=== PATIENT | male | born 2000 | race Caucasian/White ===

== ENCOUNTER → 2022-03-02 14:45 | Outpatient (CLI) | payer MEDICAID, SELFPAY ==
[2022-03-02 19:53] LABS: Adenovirus,PCR Not Detected (NotDetected); Bordetella Pertussis Not Detected (NotDetected); Coronavirus 19, PCR Not Detected (NotDetected); Coronavirus 229E Not Detected (NotDetected); Coronavirus NL63 Not Detected (NotDetected); Coronavirus OC43 Not Detected (NotDetected); Coronovirus HKU1,PCR Not Detected (NotDetected); Human Metapneumovirus Not Detected (NotDetected); Influenza A, PCR Not Detected (NotDetected); Influenza AH1, PCR Not Detected (NotDetected); Influenza AH3,PCR Not Detected (NotDetected); Influenza B, PCR Not Detected (NotDetected); Parainfluenza 1, PCR Not Detected (NotDetected); Parainfluenza 2, PCR Not Detected (NotDetected); Parainfluenza 3, PCR Not Detected (NotDetected); Parainfluenza 4, PCR Not Detected (NotDetected); Respiratory Syncytial Virus Not Detected (NotDetected); Rhinovirus/Enterovirus Not Detected (NotDetected)
[2022-03-02 19:55] LABS: Chlamydophila Pneumoniae, PCR Not Detected (NotDetected); Mycoplasma Pneumoniae, PCR Not Detected (NotDetected)
[2022-03-02 20:03] LABS: Alanine Aminotransferase 23 U/L (12-78); Albumin Level 4.5 g/dl (3.5-5.0); Albumin/Globulin Ratio 1.7 (1.1-1.8); Alkaline Phosphatase 71 U/L (38-126); Anion Gap 19.2 mEq/L (5-15); Aspartate Amino Transferase 32 U/L (17-59); Bilirubin,Total 0.4 mg/dl (0.2-1.3); Blood Urea Nitrogen 16 mg/dl (9-20); Calcium 8.9 mg/dl (8.4-10.2); Carbon Dioxide 25 mmol/L (22.0-30.0); Chloride 100 mmol/L (98-107); Estimated Glomerular Filt Rate 82 ml/min (>60); GFR (African American) 100 ML/MIN (>60); Globulin 2.7 g/dL (1.3-3.2); Glucose 172 mg/dl (74-100); Potassium 4.2 mmoL/L (3.5-5.1); Sodium 140 mmol/L (136-145); Total Protein,Serum 7.2 g/dl (6.3-8.2)
[2022-03-02 20:34] LABS: Basophils % 0.6 % (0.1-2.0); Eosinophils % 0.2 % (0.1-12.0); Hematocrit 46.1 % (42.0-52.0); Hemoglobin 15.2 g/dL (14.1-18.0); Lymphocytes # 1.3 K/mm3 (0.7-4.5); Lymphocytes % 21.6 % (10-50); Mean Corpuscular HGB Conc 32.9 g/dL (31.8-35.4); Mean Corpuscular Hemoglobin 28.9 pg (27.0-31.2); Mean Corpuscular Volume 87.8 fl (80-94); Mean Platelet Volume 8.6 fl (7.4-10.4); Monocytes # 0.6 K/mm3 (0.1-1.0); Monocytes % 10.2 % (1.7-9.3); Neutrophils # 4.2 K/mm3 (1.8-7.8); Neutrophils % 67.5 % (37.0-80.0); Platelet Count 230 K/mm3 (142-424); Red Blood Count 5.25 M/mm3 (4.60-6.20); Red Cell Distribution Width 13.3 % (11.5-17.5); White Blood Count 6.2 K/mm3 (4.8-10.8)
[2022-03-03 08:23] LABS: Influenza AH1, 2009 Detected (NotDetected)
== END ==
PROVIDERS: PCP Nurse Practitioner; Visit Provider Nurse Practitioner
DX: Z20.822 Contact with and (suspected) exposure to COVID-19 (principal); J10.1 Influenza due to other identified influenza virus with other respiratory manifestations; R05.9 Cough, unspecified; R51.9 Headache, unspecified
CPT/HCPCS: 80053; 85025; 87581; 87632; 87798; C9803; U0003; U0005

== ENCOUNTER → 2022-07-22 09:20 | Outpatient (CLI) | payer MEDICAID, SELFPAY ==
[2022-07-22 18:31] LABS: Alanine Aminotransferase 30 U/L (12-78); Albumin Level 5.2 g/dl (3.5-5.0); Albumin/Globulin Ratio 1.8 (1.1-1.8); Alkaline Phosphatase 64 U/L (38-126); Anion Gap 10.2 mEq/L (5-15); Aspartate Amino Transferase 39 U/L (17-59); Bilirubin,Total 0.7 mg/dl (0.2-1.3); Blood Urea Nitrogen 14 mg/dl (9-20); Calcium 9.4 mg/dl (8.4-10.2); Carbon Dioxide 27 mmol/L (22.0-30.0); Chloride 106 mmol/L (98-107); Estimated Glomerular Filt Rate 92 ml/min (>60); GFR (African American) 111 ML/MIN (>60); Globulin 2.9 g/dL (1.3-3.2); Glucose 96 mg/dl (74-100); Potassium 4.2 mmoL/L (3.5-5.1); Sodium 139 mmol/L (136-145); Total Protein,Serum 8.1 g/dl (6.3-8.2)
[2022-07-22 19:00] LABS: Thyroid Stimulating Hormone 0.59 uIU/mL (0.465-4.68)
[2022-07-25 22:29] LABS: Neisseria gonorrhoeae, NAA Negative (Negative)
[2022-07-30 00:05] LABS: Testosterone,Free 16.5 pg/mL (9.3-26.5)
== END ==
PROVIDERS: PCP Family Medicine; Visit Provider Family Medicine
DX: N62 Hypertrophy of breast (principal)
CPT/HCPCS: 80053; 84402; 84443; 87491; 87591

== ENCOUNTER → 2022-08-08 13:27 | Outpatient (CLI) | payer MEDICAID, SELFPAY ==
--- NOTE | 2022-08-08 13:27 | CA_ITS ---
APPROVED REPORT EXAM: Comprehensive 2D, Doppler, and color-flow Echocardiogram Water Safety Teacher: Cat Forte RVT Ht: 6 ft 3 in Wt: 238lbs BSA: 2.36 BP: 118/76 mmHg Indications: CP 2D Dimensions LVOT 2.17 cm (M/F) 1.5-2.5 LA Volume 24.30 mL LA Volume Index 10.30 mL/m2 (M/F) 16-34 M-Mode Dimensions RVDd 1.52 cm (0.9-2.6) LA Diam 3.17 cm (1.9-4.0) LVDd 5.02 cm (3.5-5.7) Ao Diam 2.97 cm (2.0-3.7) LVDs 4.01 cm (3.5-5.7) IVSd 0.51 cm (0.6-1.1) PWd 0.45 cm (0.6-1.1) EF (Teich) 61.20% FS 33.40% EDV (Teich) 181.40 mL TAPSE 2.43 (<1.7) ESV (Teich) 70.40 mL LV Diastology E Decel Time 257.00 (160-240 msec) E/A Ratio 1.1 MED E' 8.60 (< 7 cm/sec) E'/MED E' Ratio 7.78 (>14) LAT E' 16.30 (<10 cm/sec) E/LAT E' Ratio 4.10 (>14) Aortic Valve AO Peak GR. 7.40 mmHg Mitral Valve MV E Max Perry. 67.00 (40-130 cm/s) MV A Velocity 61.00 (40-130 cm/s) E/A Ratio 1.09 MV Decel. Time 257.00 (160-240 ms) MV PHT 75.00 ms Pulmonary Valve PV Peak Velocity 84.00 (50-150 cm/s) Tricuspid Valve TR P. Velocity 213.00 cm/s RAP Estimate 10.00 mmHg RVSP 28.20 mmHg Left Ventricle Left atrium is normal size, left ventricle is normal size, estimated ejection fraction 55% with no regional wall motion abnormality, diastolic parameters are within normal range. Right Ventricle Right atrium and right ventricle are normal size and contractility. Aortic Valve Aortic valve is grossly normal there is no aortic stenosis aortic insufficiency. Mitral Valve Mitral valve is grossly normal, there is no mitral stenosis or mitral regurgitation. Tricuspid Valve Tricuspid valve grossly normal, there is no tricuspid stenosis, there is no significant tricuspid regurgitation. Pulmonic Valve Pulmonic valve is poorly visualized. Great Vessels Aortic root is normal size. Inferior vena cava is normal size with normal inspiratory collapse. Pericardium No significant pericardial effusion noted. Conclusion 1. Normal left ventricular size preserved left ventricular systolic function, estimated ejection fraction 55% with no regional wall motion abnormality. Diastolic parameters are within normal range. 2. No significant pericardial effusion noted. 3. Inferior vena cava is normal size with normal inspiratory collapse. Electronically signed by : Gian Dunbar MD 08/08/2022 20:34:50
== END ==
PROVIDERS: PCP Family Medicine; Visit Provider Family Medicine
DX: R07.9 Chest pain, unspecified (principal)
CPT/HCPCS: 93306

== ENCOUNTER → 2022-08-16 11:40 | Outpatient (CLI) | payer MEDICAID, SELFPAY ==
[2022-08-16 18:09] LABS: Adenovirus,PCR Not Detected (NotDetected); Bordetella Pertussis Not Detected (NotDetected); Chlamydophila Pneumoniae, PCR Not Detected (NotDetected); Coronavirus 19, PCR Not Detected (NotDetected); Coronavirus 229E Not Detected (NotDetected); Coronavirus NL63 Not Detected (NotDetected); Coronavirus OC43 Not Detected (NotDetected); Coronovirus HKU1,PCR Not Detected (NotDetected); Human Metapneumovirus Not Detected (NotDetected); Influenza A, PCR Not Detected (NotDetected); Influenza AH1, 2009 Not Detected (NotDetected); Influenza AH1, PCR Not Detected (NotDetected); Influenza AH3,PCR Not Detected (NotDetected); Influenza B, PCR Not Detected (NotDetected); Mycoplasma Pneumoniae, PCR Not Detected (NotDetected); Parainfluenza 1, PCR Not Detected (NotDetected); Parainfluenza 2, PCR Not Detected (NotDetected); Parainfluenza 3, PCR Not Detected (NotDetected); Parainfluenza 4, PCR Not Detected (NotDetected); Respiratory Syncytial Virus Not Detected (NotDetected); Rhinovirus/Enterovirus Not Detected (NotDetected)
[2022-08-16 18:43] LABS: Basophils # 0.1 K/mm3 (0-0.2); Basophils % 0.7 % (0.1-2.0); Eosinophils # 0.1 K/mm3 (0.0-0.4); Eosinophils % 0.9 % (0.1-12.0); Hematocrit 48.5 % (42.0-52.0); Hemoglobin 15.8 g/dL (14.1-18.0); Lymphocytes # 2.6 K/mm3 (0.7-4.5); Mean Corpuscular HGB Conc 32.6 g/dL (31.8-35.4); Mean Corpuscular Hemoglobin 28.6 pg (27.0-31.2); Mean Corpuscular Volume 87.8 fl (80-94); Mean Platelet Volume 8.5 fl (7.4-10.4); Monocytes # 0.4 K/mm3 (0.1-1.0); Monocytes % 5.8 % (1.7-9.3); Neutrophils # 3.1 K/mm3 (1.8-7.8); Neutrophils % 50.6 % (37.0-80.0); Platelet Count 270 K/mm3 (142-424); Red Blood Count 5.52 M/mm3 (4.60-6.20); Red Cell Distribution Width 13.2 % (11.5-17.5); White Blood Count 6.1 K/mm3 (4.8-10.8)
== END ==
PROVIDERS: PCP Nurse Practitioner; Visit Provider Nurse Practitioner
DX: J06.9 Acute upper respiratory infection, unspecified (principal); R11.2 Nausea with vomiting, unspecified; R52 Pain, unspecified; R68.83 Chills (without fever)
CPT/HCPCS: 85025; 87581; 87632; 87798; C9803; U0003; U0005

== ENCOUNTER → 2022-08-29 23:23 | Outpatient (CLI) | payer MEDICAID, SELFPAY ==
[2022-08-29 18:09] LABS: Adenovirus,PCR Not Detected (NotDetected); Bordetella Pertussis Not Detected (NotDetected); Chlamydophila Pneumoniae, PCR Not Detected (NotDetected); Coronavirus 229E Not Detected (NotDetected); Coronavirus NL63 Not Detected (NotDetected); Coronavirus OC43 Not Detected (NotDetected); Coronovirus HKU1,PCR Not Detected (NotDetected); Human Metapneumovirus Not Detected (NotDetected); Influenza A, PCR Not Detected (NotDetected); Influenza AH1, 2009 Not Detected (NotDetected); Influenza AH1, PCR Not Detected (NotDetected); Influenza AH3,PCR Not Detected (NotDetected); Influenza B, PCR Not Detected (NotDetected); Mycoplasma Pneumoniae, PCR Not Detected (NotDetected); Parainfluenza 1, PCR Not Detected (NotDetected); Parainfluenza 2, PCR Not Detected (NotDetected); Parainfluenza 3, PCR Not Detected (NotDetected); Parainfluenza 4, PCR Not Detected (NotDetected); Respiratory Syncytial Virus Not Detected (NotDetected); Rhinovirus/Enterovirus Not Detected (NotDetected)
[2022-08-29 18:48] LABS: Basophils % 0.4 % (0.1-2.0); Eosinophils % 0.5 % (0.1-12.0); Hematocrit 47.2 % (42.0-52.0); Lymphocytes # 0.8 K/mm3 (0.7-4.5); Lymphocytes % 12.6 % (10-50); Mean Corpuscular HGB Conc 31.8 g/dL (31.8-35.4); Mean Corpuscular Hemoglobin 28.2 pg (27.0-31.2); Mean Corpuscular Volume 88.7 fl (80-94); Mean Platelet Volume 6.9 fl (7.4-10.4); Monocytes # 0.5 K/mm3 (0.1-1.0); Monocytes % 8.5 % (1.7-9.3); Neutrophils # 4.7 K/mm3 (1.8-7.8); Platelet Count 217 K/mm3 (142-424); Red Blood Count 5.32 M/mm3 (4.60-6.20); Red Cell Distribution Width 13.3 % (11.5-17.5)
[2022-08-29 21:57] LABS: Coronavirus 19, PCR Detected (NotDetected)
== END ==
PROVIDERS: PCP Nurse Practitioner; Visit Provider Nurse Practitioner
DX: U07.1 COVID-19 (principal); R11.0 Nausea; J02.9 Acute pharyngitis, unspecified; R05.9 Cough, unspecified
CPT/HCPCS: 85025; 87581; 87632; 87798; C9803; U0003; U0005

== ENCOUNTER → 2022-09-07 10:23 | Outpatient (CLI) | payer MEDICAID, SELFPAY ==
--- NOTE | 2022-09-07 10:23 | US_ITS ---
FINAL REPORT CLINICAL HISTORY: dysphagia, pharyngitis FINDINGS: THYROID ULTRASOUND Sonographic images of the thyroid was obtained. The right lobe of the thyroid measures 5.6 x 1.9 x 1.4 cm. There is a 15 x 10 x 7 mm nodule which appears spongiform, TI-RADS category 1. The left lobe of the thyroid measures 5.5 x 2.0 x 1.6 cm. No discrete nodule identified. The isthmus measures 3 mm. IMPRESSION: Right lobe nodule, TI-RADS category 1. No follow-up required. Reviewed, Interpreted and Dictated by Tam Ag III, MD Transcribed by Thea Holder Authenticated and [facility]
== END ==
PROVIDERS: PCP Nurse Practitioner; Visit Provider Nurse Practitioner
DX: R13.10 Dysphagia, unspecified (principal); J02.9 Acute pharyngitis, unspecified
CPT/HCPCS: 76536

== ENCOUNTER → 2022-10-25 12:16 | Outpatient (CLI) | payer MEDICAID, SELFPAY ==
[2022-10-25 18:37] LABS: Adenovirus F 40/41, stool Not Detected (NotDetected); Astrovirus Not Detected (NotDetected); Campylobacter Not Detected (NotDetected); Cryptosporidium Not Detected (NotDetected); Cyclospora Cayetanesis Not Detected (NotDetected); Entamoeba histolytica Not Detected (NotDetected); Enteroaggregative E coli Not Detected (NotDetected); Enteropathogenic E coli Not Detected (NotDetected); Enterotoxigenic E coli Not Detected (NotDetected); Giardia lamblia Not Detected (NotDetected); Norovirus Not Detected (NotDetected); Plesimonas Shigalloides, PCR Not Detected (NotDetected); Rotavirus A Not Detected (NotDetected); Salmonella, PCR Not Detected (NotDetected); Sapovirus Not Detected (NotDetected); Shiga-like toxin E coli Not Detected (NotDetected); Shigella Enterovasive E coli Not Detected (NotDetected); Vibrio Cholerae Not Detected (NotDetected); Vibrio, PCR Not Detected (NotDetected); Yersinia Entercolitica, PCR Not Detected (NotDetected)
[2022-10-25 18:51] LABS: Basophils % 0.4 % (0.1-2.0); Eosinophils # 0.1 K/mm3 (0.0-0.4); Eosinophils % 1.5 % (0.1-12.0); Hemoglobin 15.4 g/dL (14.1-18.0); Lymphocytes # 2.8 K/mm3 (0.7-4.5); Lymphocytes % 38.4 % (10-50); Mean Corpuscular HGB Conc 32.1 g/dL (31.8-35.4); Mean Corpuscular Hemoglobin 27.9 pg (27.0-31.2); Mean Corpuscular Volume 87.2 fl (80-94); Mean Platelet Volume 8.4 fl (7.4-10.4); Monocytes # 0.4 K/mm3 (0.1-1.0); Monocytes % 6.1 % (1.7-9.3); Neutrophils # 3.9 K/mm3 (1.8-7.8); Neutrophils % 53.6 % (37.0-80.0); Platelet Count 276 K/mm3 (142-424); Red Blood Count 5.51 M/mm3 (4.60-6.20); Red Cell Distribution Width 13.1 % (11.5-17.5); White Blood Count 7.3 K/mm3 (4.8-10.8)
[2022-10-25 18:55] LABS: Chloride 98 mmol/L (98-107); Potassium 4.4 mmoL/L (3.5-5.1); Sodium 141 mmol/L (136-145)
[2022-10-25 18:57] LABS: Alanine Aminotransferase 38 U/L (12-78); Aspartate Amino Transferase 37 U/L (17-59); Blood Urea Nitrogen 13 mg/dl (9-20); Estimated Glomerular Filt Rate 104 ml/min (>60); GFR (African American) 125 ML/MIN (>60)
[2022-10-25 18:58] LABS: Albumin Level 4.7 g/dl (3.5-5.0); Alkaline Phosphatase 66 U/L (38-126); Anion Gap 17.4 mEq/L (5-15); Bilirubin,Total 0.3 mg/dl (0.2-1.3); Calcium 9.2 mg/dl (8.4-10.2); Carbon Dioxide 30 mmol/L (22.0-30.0); Globulin 2.4 g/dL (1.3-3.2); Glucose 81 mg/dl (74-100); Total Protein,Serum 7.1 g/dl (6.3-8.2)
[2022-10-25 21:36] LABS: Clostridium Difficile A/B, PCR Detected (NotDetected)
== END ==
PROVIDERS: PCP Nurse Practitioner; Visit Provider Nurse Practitioner
DX: R19.7 Diarrhea, unspecified (principal); A04.72 Enterocolitis due to Clostridium difficile, not specified as recurrent
CPT/HCPCS: 80053; 85025; 87507

== ENCOUNTER → 2022-12-07 23:00 | Outpatient (CLI) | payer MEDICAID, SELFPAY ==
[2022-12-09 08:24] LABS: HBsAg Screen Negative (Negative); HCV Ab Non Reactive (Non Reactive); HIV Screen 4th Generation wRfx Non Reactive (Non Reactive); Hep A Ab, IGM Negative (Negative); Hep B Core Ab, IgM Negative (Negative)
[2022-12-09 12:05] LABS: HSV 1 IgG, Type Spec <0.91 index (0.00-0.90); HSV 2 IgG, Type Spec <0.91 index (0.00-0.90)
[2022-12-09 12:13] LABS: Rapid Plasma Reagin Ab Titer Non Reactive (NonRea<1:1)
[2022-12-09 20:10] LABS: Neisseria gonorrhoeae, NAA Negative (Negative)
[2023-01-11 09:06] LABS: Trichomonas Vaginalis, NAA Negative
== END ==
LOC: LAB.DROPOF 12-08 01:19
PROVIDERS: PCP Nurse Practitioner; Visit Provider Nurse Practitioner
DX: Z11.3 Encounter for screening for infections with a predominantly sexual mode of transmission (principal); Z11.4 Encounter for screening for human immunodeficiency virus [HIV]
CPT/HCPCS: 80074; 86593; 86695; 86703; 86790; 87491; 87591; 87661; G0432

== ENCOUNTER → 2022-12-20 23:25 | Outpatient (CLI) | payer MEDICAID, SELFPAY ==
[2022-12-20 18:33] LABS: Adenovirus F 40/41, stool Not Detected (NotDetected); Astrovirus Not Detected (NotDetected); Campylobacter Not Detected (NotDetected); Clostridium Difficile A/B, PCR Not Detected (NotDetected); Cryptosporidium Not Detected (NotDetected); Cyclospora Cayetanesis Not Detected (NotDetected); Entamoeba histolytica Not Detected (NotDetected); Enteroaggregative E coli Not Detected (NotDetected); Enteropathogenic E coli Not Detected (NotDetected); Enterotoxigenic E coli Not Detected (NotDetected); Giardia lamblia Not Detected (NotDetected); Norovirus Not Detected (NotDetected); Plesimonas Shigalloides, PCR Not Detected (NotDetected); Rotavirus A Not Detected (NotDetected); Salmonella, PCR Not Detected (NotDetected); Sapovirus Not Detected (NotDetected); Shiga-like toxin E coli Not Detected (NotDetected); Shigella Enterovasive E coli Not Detected (NotDetected); Vibrio Cholerae Not Detected (NotDetected); Vibrio, PCR Not Detected (NotDetected); Yersinia Entercolitica, PCR Not Detected (NotDetected)
[2022-12-20 18:53] LABS: Basophils % 0.6 % (0.1-2.0); Eosinophils # 0.1 K/mm3 (0.0-0.4); Eosinophils % 1.6 % (0.1-12.0); Hematocrit 47.6 % (42.0-52.0); Hemoglobin 15.2 g/dL (14.1-18.0); Lymphocytes # 2.3 K/mm3 (0.7-4.5); Lymphocytes % 39.2 % (10-50); Mean Corpuscular HGB Conc 31.9 g/dL (31.8-35.4); Mean Corpuscular Hemoglobin 28.3 pg (27.0-31.2); Mean Corpuscular Volume 88.6 fl (80-94); Mean Platelet Volume 8.3 fl (7.4-10.4); Monocytes # 0.5 K/mm3 (0.1-1.0); Monocytes % 7.9 % (1.7-9.3); Neutrophils % 50.8 % (37.0-80.0); Platelet Count 246 K/mm3 (142-424); Red Blood Count 5.37 M/mm3 (4.60-6.20); Red Cell Distribution Width 13.4 % (11.5-17.5); White Blood Count 5.9 K/mm3 (4.8-10.8)
== END ==
PROVIDERS: PCP Nurse Practitioner; Visit Provider Nurse Practitioner
DX: A04.72 Enterocolitis due to Clostridium difficile, not specified as recurrent (principal)
CPT/HCPCS: 85025; 87507